=== PATIENT | male | born 1935 | race Caucasian/White ===

== ENCOUNTER 2017-04-07 11:22 | Observation (INO) | payer BC ==
--- NOTE | ~2017-04-07 | HP ---
History And Physical [place] [address] [facility] [place]. [address] NAME: REJI CABAN : 39 STATUS : ADM Onofre PAT#: [id number] AGE: 82 ADM/REG DATE : 04/07/17 MR#: [id number] REPORT SERV DATE: 04/08/17 DICTATED BY: MARIA ELENA TRACY DATE: 04/08/17 REPORT STATUS : Draft TRANSCRIBED BY: MODSohan DATE: 04/08/17 DATE OF ADMISSION: 04/07/2017 CORRECTIONAL PROGRAM SPECIALIST: Alec Cervantes M.D., Ph.D, F.A.C.C. CHIEF COMPLAINT: Minimal chest pain, weakness, and dizziness. HISTORY OF PRESENT ILLNESS: A very pleasant 82-year-old white gentleman with known history of CAD, status post multiple stents most recently in 01/2017 JIGAR to distal circumflex with identified [id number] CAD and small vessels to be treated medically. Reviewing Dr. Cervantes's note of 03/04/2017 the patient was instructed to stop his aspirin. On 03/25/2017 but the patient seemingly stopped both his aspirin and his Plavix on 03/25/2017. He remains on Jantoven with a subtherapeutic INR. The patient states he awoke on 04/07/2017 around 0830 hours somewhat weak and dizzy. He developed some minimal chest pain rated 1 to 2/10. He did take nitroglycerin but the chest pain returned. He took a total of three nitroglycerin. Later in the day he went and had his INR checked at lab next to his PCP's office. After having the blood work drawn, he went to his PCP's office who recommended that he come to the emergency room for his symptoms. He states he was weak but not as profound as in 01/2017 and his presenting symptom in January was breathlessness, which he did not have with this event. He denies any shortness of breath, nausea, diaphoresis, or belching. Once he arrived at the hospital, he walked around for approximately 5 minutes and did not feel any symptoms related to his heart. He states "I do not believe this is my heart." The patient denies any personal history of myocardial infarction, stroke, DVT, or pulmonary embolus. The patient denies any recent fever or chills. No palpitations. No syncopal events. Denies PND or orthopnea. He does sleep in a recliner for the past three years. PAST MEDICAL HISTORY: 1. CAD subset a multiple stents subset. 2. 01/2017 JIGAR to distal RCA with residual mizwrrar-nq-mylrfc CAD requiring medical management. 3. Hypertension. 4. Dyslipidemia. 5. PAF, on Jantoven, amiodarone with subtherapeutic INR of 1.4. 6. Cardiomyopathy, EF 45%. 7. Renal insufficiency. 8. Sleep apnea, compliant with CPAP. 9. Manic depression. 10.Obesity. 11.BPH. 12.Arthritis requiring lower extremity braces. 13.Positive family history for CAD. PAST SURGICAL HISTORY: 1. Right hip replacement. History And Physical [address] [address] NAME: REJI CABAN : 39 STATUS : ADM Onofre PAT#: [id number] AGE: 82 ADM/REG DATE : 04/07/17 MR#: [id number] REPORT SERV DATE: 04/08/17 DICTATED BY: MARIA ELENA TRACY DATE: 04/08/17 REPORT STATUS : Draft TRANSCRIBED BY: IKE DATE: 04/08/17 2. Bilateral total knee replacement. 3. Fused left ankle. SOCIAL HISTORY: He is with 7 children. Retired. Has an inconsistent exercise routine. Denies tobacco, alcohol, or illicits. FAMILY HISTORY: Father of a heart attack at 79. Mother of colon cancer. Brother with a stroke in his 50s at 73. REVIEW OF SYSTEMS: A 14-point review of systems performed, significant for HPI including off aspirin and Plavix since 03/25/2017, subtherapeutic INR of 1.4. Reports he may have missed some doses of his Jantoven. Otherwise complete review of systems obtained and negative. ALLERGIES: AMLODIPINE BRADYCARDIA, SAPHRIS, LITHIUM KIDNEY FAILURE, HALDOL TREMORS, ATIVAN CONFUSION, KLONOPIN, GABAPENTIN, GALANTAMINE BRADYCARDIA. HOME MEDICATIONS: Tylenol p.r.n., amiodarone 100 mg twice daily, Lipitor 40 mg nightly, vitamin D 1000 units nightly, Benadryl p.r.n., Lasix 40 mg twice daily, Imdur 30 mg nightly, Lamictal 100 mg nightly, Synthroid 25 mcg daily, Cozaar 25 mg nightly, nitroglycerin p.r.n., fish oil 1000 mg daily, potassium 20 mEq nightly, Mirapex 1.5 mg with supper and at bedtime and 1.5 p.r.n., Risperdal 0.5 mg nightly, Flomax 0.4 mg nightly, PreserVision nightly, and Jantoven 2.5 Tuesday, Tuesday, , Tuesday; 5 mg Tuesday, Tuesday, and Tuesday. PHYSICAL EXAMINATION: VITAL SIGNS: Blood pressure 134/63, pulse 67, respirations 16, temperature 98.2, O2 saturation 96% on room air. GENERAL: Cooperative, in no apparent distress. HEENT: Pupils 2 mm, sclera nonicteric. Nares patent. Moist mucous membranes. No xanthelasma. NECK: Trachea midline, no thyromegaly. No JVD. No bruits. LYMPH: No cervical lymphadenopathy. No supraclavicular lymphadenopathy. RESPIRATORY: Unlabored respirations. Breath sounds clear bilaterally to posterior auscultation. No wheezes or rhonchi. CARDIOVASCULAR: Regular rate. No murmur, rub or gallop appreciated. EXTREMITIES: Without edema. Pulses 2+ bilaterally. ABDOMEN: Soft, nontender, nondistended, normal bowel sounds auscultated throughout. No organomegaly. SKIN: Warm, dry extremities. No pallor, or cyanosis. PSYCHIATRIC: Appropriate affect. Alert, oriented x3. LABORATORY DATA: Troponin less than 0.02 twice. Potassium 4.1, BUN 24, creatinine 1.17, glucose 95, magnesium 2.2. WBC 5.6, hemoglobin 11.0, hematocrit 33.6, platelet count 237,000. PT 17.4. INR 1.4. EKG sinus bradycardia with first-degree AV block. IVCD. PRWP. Nonspecific T-waves, occasional PVCs. Echo, 12/2015: EF 45%. Mild global HK. Mild diastolic dysfunction. MPI, 11/2016: No significant ischemia. Fixed inferior wall defect, EF 36%. History And Physical [address] [place] [address] NAME: REJI CABAN : 39 STATUS : ADM Onofre PAT#: [id number] AGE: 82 ADM/REG DATE : 04/07/17 MR#: [id number] REPORT SERV DATE: 04/08/17 DICTATED BY: MARIA ELENA TRACY DATE: 04/08/17 REPORT STATUS : Draft TRANSCRIBED BY: IKE DATE: 04/08/17 PCI, 01/2017 (Edwards): JIGAR to distal circumflex. [id number]-[id number] ostial diagonal 1, severe diagonal 2 both for medical management. Severe mid RCA, small vessel disease, patent proximal LAD stent. ASSESSMENT AND PLAN: 1. A brief chest pain now resolved, somewhat dissimilar to presenting symptoms in 01/2017. The patient reports no breathlessness. No chest pain currently. 2- troponins. N.p.o. for now. We will discuss with rounding physician a need for cardiac testing versus discharge home. The patient is off his aspirin and Plavix since 03/25/2017 with a subtherapeutic INR. We will discuss all with rounding physician further recommendations forthcoming. 2. Coronary artery disease. Continue home medications. 3. Subtherapeutic INR of 1.4. We will recommend increasing Jantoven at discharge to 5 mg for two days with close PCP followup with INR check next week. 4. Hypertension. Monitor blood pressure. Continue home medications. 5. Dyslipidemia. Continue statin. 6. PAF, on amiodarone. We will increase Jantoven at discharge with close PCP followup. MILO/IKE Maria Elena Tracy, MSN, STRAIGHTENING PRESS OPERATOR HELPER-BC / [id number] CC: Maria Elena Tracy, MSN, STRAIGHTENING PRESS OPERATOR HELPER-BC William Rosas M.D.
[~2017-04-07 11:22] MED LIST: ACET500CAP PO; ADVIL PO; ALEVE220 MG PO; ASA5GR PO; ASAB PO; BEN25 PO; CENTRUM PO; CENTRUM TAB1 TAB PO; COUMADIN3 MG PO; COUMADIN6 MG PO; COZ25 PO; ESKACR PO; FERROUS SULF325 M1 PO; FISH OIL1200 MG PO; FISH OIL300 MG; FISH-EPA1000 MG PO; FLOMAX4 PO; GLUCCHONDR PO; IRON325 MG PO; JANTOVEN1 MG PO; JANTOVEN5 MG PO; K-TABS10 MEQ PO; KLOR-CON M2020 MEQ PO; L20 PO; L40 PO; LAMICTAL10 PO; LAMICTAL25 PO; LEVOTHYROXIN25 MCG PO; LIPITOR40 PO; LISINOPRIL40 MG PO; LITHIUM CARB450 MG PO; MIRAPEX1.5 MG PO; MIRAPEX125 PO; MIRAPEX5 PO; MULTIVITAMI1 PO; NITROSTAT0.4 MG SL; NORV10 PO; NORV5 PO; PACERONE100 MG PO; PLAVIX PO; POTASSIUM; POTASSIUM PO; PRAVAC PO; PRAVACHOL40 MG PO; PRESERVISION A1 EAC1 PO; PRILOSEC40 MG PO; RAZADYNE4 PO; REQUIP PO; REQUIP XL6 MG PO; REQUIP4 MG PO; RISPERDAL M0.5 MG PO; SEROQUEL1C PO; SEROQUEL50 MG PO; VITAMIN B PO; VITAMIN B-121000 MC1 SL; VITAMIN D31000 UNIT PO; ZANTAC 75 PO; ZANTAC150 MG PO; [UNRECOGNIZED DRUG - OTHER] PO
[2017-04-07 12:22] LABS: BASOPHILS 0.4 %; BASOPHILS ABSOLUTE 0.02 10/3/uL (0.0-0.16); EOSINOPHILS ABSOLUTE 0.45 10/3/uL (0.0-0.53); ER CBC TAT 0 Hrs 03 Mins; IMMATURE GRANULOCYTES 0.2 %; IMMATURE GRANULOCYTES ABSOLUTE 0.01 10/3/uL (0.0-0.11); LYMPHOCYTES 16.2 %; LYMPHOCYTES ABSOLUTE 0.91 10/3/uL (0.67-4.30); MEAN CORPUS HGB CONC 32.7 g/dL (32.0-36.0); MEAN CORPUSCULAR HEMOGLOB 30.3 pg (26.0-34.0); MEAN CORPUSCULAR VOLUME 92.6 fL (80-100); MEAN PLATELET VOLUME 8.6 fL (9.2-13.0); MONOCYTES 7.8 %; MONOCYTES ABSOLUTE 0.44 10/3/uL (0.21-1.20); NEUTROPHILS 67.4 %; NEUTROPHILS ABSOLUTE 3.78 10/3/uL (2.02-8.40); PLATELET COUNT 237 10/3/uL (150-400); RBC DISTRIBUTION WIDTH 15.1 % (12.0-16.0); RED CELL COUNT 3.63 10/6/uL (4.7-6.1); WHITE BLOOD CELLS 5.6 10/3/uL (4.5-10.5)
[2017-04-07 12:23] LABS: HEMATOCRIT 33.6 % (40.0-51.0); MANUAL DIFF NO %
[2017-04-07 12:29] LABS: INTERNATIONAL NORMAL RATI 1.4 UNITS (-); PARTIAL THROMBO TIME 36.1 SEC (22.5-37.2); PROTIME (NOT ORD) 17.1 SEC (12.0-14.5)
[2017-04-07 12:36] LABS: CALCIUM, SERUM 8.9 MG/DL (8.5-10.4); CHLORIDE, SERUM 108 MMOL/L (96-112); CO2 (CARBON DIOXIDE) 26 MMOL/L (24-34); CREATININE 1.17 MG/DL (0.70-1.30); GFR AFRICAN AMERICAN 68 ML/MIN (>=60); GFR NON AFRICAN AMERICAN 59 ML/MIN (>=60); GLUCOSE, SERUM 95 MG/DL (60-99); POTASSIUM, SERUM 4.1 MMOL/L (3.5-5.3); SODIUM, SERUM 141 MMOL/L (135-148); TROPONIN I <0.02 NG/ML (<0.05)
[2017-04-07 12:37] LABS: BUN (BLOOD UREA NITROGEN) 24 MG/DL (6-23)
[2017-04-07] MEDS ORDERED: NITROSTAT0.4 MG SL (16:38)
[2017-04-07] MEDS ORDERED: C25 PO (16:39)
[2017-04-07] MEDS ORDERED: C5 PO (16:39)
[2017-04-07] MEDS ORDERED: IMDUR30 PO (16:40)
[2017-04-07] MEDS ORDERED: L40 PO (16:40)
[2017-04-07] MEDS ORDERED: MIRAPEX1.5 MG PO ×2 (16:41)
[2017-04-07] MEDS ORDERED: LIPITOR40 PO (16:42)
[2017-04-07] MEDS ORDERED: COZ25 PO (16:42)
[2017-04-07] MEDS ORDERED: RISP0.5 PO (16:42)
[2017-04-07] MEDS ORDERED: PACERONE100 MG PO (16:42)
[2017-04-07] MEDS ORDERED: FLOMAX4 PO (16:43)
[2017-04-07] MEDS ORDERED: LAMICTAL10 PO (16:43)
[2017-04-07] MEDS ORDERED: KLOR-CON M2020 MEQ PO (16:43)
[2017-04-07] MEDS ORDERED: SYN.025B PO (16:44)
[2017-04-07] MEDS ORDERED: BEN25 PO (16:46)
[2017-04-07] MEDS ORDERED: PRESERVISION A1 EAC1 PO (16:47)
[2017-04-07] MEDS ORDERED: FISH-EPA1000 MG PO (16:47)
[2017-04-07] MEDS ORDERED: VITAMIN D1000 UNI1 PO (16:48)
[2017-04-07] MEDS ORDERED: ACET500CAP PO (16:48)
[2017-04-08 04:24] LABS: INTERNATIONAL NORMAL RATI 1.4 UNITS (-); PARTIAL THROMBO TIME 35.4 SEC (22.5-37.2); PROTIME (NOT ORD) 17.4 SEC (12.0-14.5)
== END 2017-04-08 13:14 | disposition home or self-care (01) ==
LOC: ER 11:22 → CDU1 15:55
PROVIDERS: Clinical Nurse Specialist; Emergency Medicine
DX: R07.89 Other chest pain (principal); I25.10 Atherosclerotic heart disease of native coronary artery without angina pectoris; I10 Essential (primary) hypertension; I48.0 Paroxysmal atrial fibrillation; E78.5 Hyperlipidemia, unspecified; I42.9 Cardiomyopathy, unspecified; G47.30 Sleep apnea, unspecified; F32.9 Major depressive disorder, single episode, unspecified; N40.0 Benign prostatic hyperplasia without lower urinary tract symptoms; M19.90 Unspecified osteoarthritis, unspecified site; Z96.653 Presence of artificial knee joint, bilateral; Z95.5 Presence of coronary angioplasty implant and graft; Z99.89 Dependence on other enabling machines and devices; Z96.641 Presence of right artificial hip joint; Z88.8 Allergy status to other drugs, medicaments and biological substances; Z79.899 Other long term (current) drug therapy; Z79.82 Long term (current) use of aspirin; Z98.890 Other specified postprocedural states
CPT/HCPCS: 71020; 80048; 83735; 84484; 85025; 85610; 85730; 93005; 99285; A9270-GY; G0378